=== PATIENT | female | born 1945 | race Caucasian/White ===

== ENCOUNTER 2017-11-02 10:51 | Outpatient (RCR) | payer MEDICARE, BC ==
[2016-09-14 10:00] VITALS: Wt 78.2 kg
[2017-10-30 11:15] VITALS: BP 138/92
[2017-10-30 11:28] LABS: PLATELET COUNT, AUTOMATED 287 K/uL (150-450)
[~2017-11-02 10:51] MED LIST: ACE3 FT; ACE3 PO; ACET-3017 PO; ALPR-445 PO; APIX5TAB PO; ASCO-182 PO; ASP81 PO; ASPI-1471 PO; ASPI-757 PO; ATOR20TA65 PO; ATOR40TA24 PO; CELE-1 PO; DIA5 PO; DOCU-416 PO; FAMO-67 PO; FERR324T23 PO; FLUO-177 PO; GLUC-307 PO; HYDR-2966 PO; HYDR-4308 PO; IBUP-1784 PO; IBUP200C71 PO; INDO50CA92 PO; LANS30CA63 PO; LANS30CA70 PO; LETR2.5T4 PO; LISI-362 PO; LISI20TA29 PO; METO-253 PO; METO-259 PO; MOM PO; MULT-1372 PO; ONDA8TAB98 PO; OXYC-823 PO; OXYC1TAB54 PO; PNEU0.5D3 IM; POLY17PO21 PO; PRAV20TA65 PO; PRAV40TA78 PO; PROB500T31 PO; PROM-110 PO; RIVA20TA PO; ROLAIDS PO; SOLI10TA8 PO; TOLT4CAP13 PO; TRAM-420 PO; VALA100062 PO; ZOST19404 SQ; [UNRECOGNIZED DRUG - CODE] PO; [UNRECOGNIZED DRUG - OTHER] PO
[2017-11-02 11:02] VITALS: BP 145/94
--- NOTE | 2017-11-03 17:44 | ONCOLOGY FOLLOW UP NOTE ---
EVENT DATE: November 02, 2017 DIAGNOSES 1. Stage IA ([id number]) right breast invasive ductal carcinoma. 2. Hypertension. 3. Hypercholesterolemia. 4. Arthritis. 5. Herpes zoster. 6. Bilateral pulmonary embolus diagnosed October 2016. CHIEF COMPLAINT The patient is here today for followup of her right breast cancer. ONCOLOGY HISTORY The patient is here today for followup of her right breast cancer on adjuvant hormonal therapy with letrozole. PRESENTATION Abnormal screening mammogram done June 04, 2015 and showed asymmetry deep in the medial aspect of the right breast. DIAGNOSTIC EVALUATION 1. Right digital diagnostic mammogram done on June 17, 2015, which showed focal area of increased density in the medial upper portion of the right breast in zone 3. 2. MRI of the breast did reveal a 6 mm abnormal area of enhancement with washout kinetics seen in the medial upper portion of the right breast zone 3; MRI of the breast done on June 25, 2015. PROCEDURE Wire localization and lumpectomy with right sentinel lymph node biopsy done on July 07, 2015. PATHOLOGY Positive for 0.7 cm infiltrating ductal carcinoma, grade II, ER positive, OR positive, HER2/marlena negative (1+ by immunohistochemistry). Ki-67 was low at 4.3% . Three sentinel lymph nodes removed on July 21, 2015 and came back negative for metastasis. Oncotype DX testing showed recurrence score of 11, which is low risk, so the patient is not a candidate for adjuvant chemotherapy. STAGE Stage IA ([id number]) right invasive ductal carcinoma. TREATMENT 1. The patient has started adjuvant hormonal therapy with Letrozole 2.5 mg daily on September 04, 2015. 2. The patient started adjuvant radiation therapy to her right breast on September 15, 2015. 3. The patient completed her adjuvant radiation therapy on October 30, 2015. HISTORY OF PRESENT ILLNESS Patient is here today for followup of her right breast cancer. She is doing fine currently except for some hot flashes. She has also some pain in her right knee after her surgery in her right knee. She is complaining of some numbness in her fingers sometimes and occasional headache. PAST MEDICAL HISTORY 1. Arthritis. 2. Gout. 3. Hypertension. 4. Hypercholesterolemia. PAST SURGICAL HISTORY 1. In 1998, she had fragmented disk, lumbar 7. She had laminectomy. 2. In 1999, she had fusion of lumbar 7. 3. In 2001, she had fusion of lumbar 7 again. 4. Left axillary biopsy for fatty tissue in the 1970s. 5. Tonsillectomy. 6. Right knee replacement done on September 13, 2015. SOCIAL HISTORY The patient is with two daughters. 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 Denies any abuse of tobacco or illicit drugs. FAMILY HISTORY Mother had breast cancer in her late sixties. CURRENT MEDICATIONS 1. Colace 100 mg twice daily. 2. MiraLax 17 gm once daily. 3. Milk of Magnesia 30 mL every 8 hours p.r.n. for constipation. 4. Tramadol 5 to 100 mg q.4-6h. p.r.n. for pain. 5. Ferrous fumarate 325 mg daily. 6. Atorvastatin 20 mg daily. 7. Vitamin C 500 mg daily. 8. Letrozole 2.5 mg daily. 9. Fluoxetine 20 mg daily. 10. Lisinopril 20 mg daily. 11. Alprazolam 25 mg, 1/2 to 1 tablet at bedtime p.r.n. 12. Vesicare 10 mg daily. 13. Probenecid 500 mg twice daily. 14. Metoprolol 50 mg daily. 15. Pepcid 20 mg daily. ALLERGIES DARVON, which causes nausea. HYDROCODONE, which causes nausea. REVIEW OF SYSTEMS CONSTITUTIONAL: The patient has some hot flashes. HEENT: Ears: No tinnitus or hearing problem. Nose: No nasal discharge or epistaxis. Throat: No sore throat or mouth ulcers. Eyes: No diplopia or visual changes. RESPIRATORY: No shortness of breath. No cough, expectoration or hemoptysis. CARDIOVASCULAR: No chest pain, orthopnea, or paroxysmal nocturnal dyspnea (PND) . No edema. No palpitations. GASTROINTESTINAL: Patient has occasional nausea and abdominal pain. GENITOURINARY: No hematuria or dysuria. MUSCULOSKELETAL: She has pain in the right knee. NEUROLOGICAL: She has numbness in her hands sometimes. She has occasional headache. HEMATOLOGIC/LYMPHATIC: She is weak, tired and fatigued. SKIN: No skin rash or lumps. PSYCHIATRIC: No anxiety or depression. PHYSICAL EXAMINATION GENERAL: Looks stable. Well-developed, well-nourished, and in no acute distress. VITAL SIGNS: Blood pressure 145/94, pulse 69 per minute, respirations 16 per minute, temperature 98.9, pulse ox 92% on room air. HEENT: Head: Atraumatic. No sinus tenderness to palpation. Eyes: No icterus or conjunctivitis. Mouth and throat: No oral thrush or mucositis. NECK: Supple. No cervical or supraclavicular lymphadenopathy. LUNGS: Clear to auscultation and percussion bilaterally. HEART: Regular rate and rhythm. No gallops, murmurs, clicks or rubs. ABDOMEN: Soft and lax. No tenderness. No hepatosplenomegaly. No masses. EXTREMITIES: No cyanosis, clubbing or edema. LYMPHATICS: No peripheral lymphadenopathy. NEUROLOGICAL: Conscious, alert and oriented times three. No focal motor or sensory deficits. PSYCHIATRIC: Mood and affect appear normal. SKIN: There is evidence of erythema of the entire right chest wall, including the right breast at the port of her radiation therapy. DIAGNOSTIC DATA CBC showed white count 7.9, hemoglobin 15.5, hematocrit 45.9, platelets 257, 000. Chem panel was totally normal except chloride 97. ASSESSMENT 1. Stage IA (T1b N0 M0) right invasive breast ductal carcinoma grade 2/3, ER/ OR positive, HER2/marel[place] negative. Status post localization lumpectomy done July 04, 2015 followed by right sentinel lymph node biopsy done July 21, 2015. [place] lymph nodes were negative for metastasis, tumor size was 0.7 cm. Oncotype DX testing showed low recurrence score of 11, so there was no indication for adjuvant chemotherapy. The patient started adjuvant hormonal therapy with Letrozole 2.5 mg daily on September 04, 2015. She received adjuvant radiation therapy between September 15, 2015 through October 30, 2015. She is tolerating treatment very well. I am planning to continue her Letrozole for a total of five years, and the patient is currently in complete remission. I am planning to see her again in three months with CBC, chem panel, CA 27-29. 2. History of bilateral pulmonary embolism after orthopedic surgical procedure. Patient received six months of anticoagulation with Eliquis between October and April 2017. 3. History of herpes zoster of the left lateral lower rib cage, status post treatment. 4. Arthritis, status post right knee replacement, August. 5. Hypertension, on treatment. PLAN 1. Continue Letrozole 2.5 mg daily. 2. Patient to return in three months with CBC, chem panel, CA 27-29. 3. Patient is to contact us for any new concerns or complaints. [facility]
== END 2018-01-25 ==
LOC: ONC 10:51
PROVIDERS: ATTEND Internal Medicine Hematology
DX: C50.911 Malignant neoplasm of unspecified site of right female breast (principal)
CPT/HCPCS: 36415; 85025; G0463; 82040; 82247; 82310; 82374; 82435; 82565; 82947; 84075; 84132; 84155; 84295; 84450; 84460; 84520; 99212

== ENCOUNTER 2018-02-01 10:57 | Outpatient (RCR) | payer MEDICARE, BC ==
[2016-09-14 10:00] VITALS: Wt 80.1 kg
[2018-01-29 11:09] LABS: PLATELET COUNT, AUTOMATED 304 K/uL (150-450)
[2018-02-01 11:05] VITALS: BP 120/60
--- NOTE | 2018-02-01 20:42 | ONCOLOGY FOLLOW UP NOTE ---
EVENT DATE: February 01, 2018 DIAGNOSES 1. Stage IA ([id number]) right breast invasive ductal carcinoma. 2. Hypertension. 3. Hypercholesterolemia. 4. Arthritis. 5. Herpes zoster. 6. Bilateral pulmonary embolus diagnosed October 2016. CHIEF COMPLAINT The patient is here today for followup of her right breast cancer. ONCOLOGY HISTORY The patient is here today for followup of her right breast cancer on adjuvant hormonal therapy with letrozole. PRESENTATION Abnormal screening mammogram done June 04, 2015 and showed asymmetry deep in the medial aspect of the right breast. DIAGNOSTIC EVALUATION 1. Right digital diagnostic mammogram done on June 17, 2015, which showed focal area of increased density in the medial upper portion of the right breast in zone 3. 2. MRI of the breast did reveal a 6 mm abnormal area of enhancement with washout kinetics seen in the medial upper portion of the right breast zone 3; MRI of the breast done on June 25, 2015. PROCEDURE Wire localization and lumpectomy with right sentinel lymph node biopsy done on July 07, 2015. PATHOLOGY Positive for 0.7 cm infiltrating ductal carcinoma, grade II, ER positive, [place] positive, HER2/marlena negative (1+ by immunohistochemistry). Ki-67 was low at 4.3% . Three sentinel lymph nodes removed on July 21, 2015 and came back negative for metastasis. Oncotype DX testing showed recurrence score of 11, which is low risk, so the patient is not a candidate for adjuvant chemotherapy. STAGE Stage IA ([id number]) right invasive ductal carcinoma. TREATMENT 1. The patient has started adjuvant hormonal therapy with Letrozole 2.5 mg daily on September 04, 2015. 2. The patient started adjuvant radiation therapy to her right breast on September 15, 2015. 3. The patient completed her adjuvant radiation therapy on October 30, 2015. HISTORY OF PRESENT ILLNESS Patient is here today for followup of her right breast cancer. She is doing very well currently without any symptoms, except for hot flashes and some chest pain for which the patient is going to see her doctor. She has also some fatigue, but generally speaking she is really doing very well. PAST MEDICAL HISTORY 1. Arthritis. 2. Gout. 3. Hypertension. 4. Hypercholesterolemia. PAST SURGICAL HISTORY 1. In 1998, she had fragmented disk, lumbar 7. She had laminectomy. 2. In 1999, she had fusion of lumbar 7. 3. In 2001, she had fusion of lumbar 7 again. 4. Left axillary biopsy for fatty tissue in the 1970s. 5. Tonsillectomy. 6. Right knee replacement done on September 13, 2015. SOCIAL HISTORY The patient is with two daughters. 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 Denies any abuse of tobacco or illicit drugs. FAMILY HISTORY Mother had breast cancer in her late sixties. CURRENT MEDICATIONS 1. Colace 100 mg twice daily. 2. MiraLax 17 gm once daily. 3. Milk of Magnesia 30 mL every 8 hours p.r.n. for constipation. 4. Tramadol 5 to 100 mg q.4-6h. p.r.n. for pain. 5. Ferrous fumarate 325 mg daily. 6. Atorvastatin 20 mg daily. 7. Vitamin C 500 mg daily. 8. Letrozole 2.5 mg daily. 9. Fluoxetine 20 mg daily. 10. Lisinopril 20 mg daily. 11. Alprazolam 25 mg, 1/2 to 1 tablet at bedtime p.r.n. 12. Vesicare 10 mg daily. 13. Probenecid 500 mg twice daily. 14. Metoprolol 50 mg daily. 15. Pepcid 20 mg daily. ALLERGIES DARVON, which causes nausea. HYDROCODONE, which causes nausea. REVIEW OF SYSTEMS CONSTITUTIONAL: The patient has hot flashes. HEENT: Ears: No tinnitus or hearing problem. Nose: No nasal discharge or epistaxis. Throat: No sore throat or mouth ulcers. Eyes: No diplopia or visual changes. RESPIRATORY: No shortness of breath. No cough, expectoration or hemoptysis. CARDIOVASCULAR: She has some chest pain for which the patient is going to see her doctor. No orthopnea, or paroxysmal nocturnal dyspnea (PND). No edema. No palpitations. GASTROINTESTINAL: Patient has occasional nausea and abdominal pain. GENITOURINARY: No hematuria or dysuria. MUSCULOSKELETAL: She has pain in the right knee. NEUROLOGICAL: She has numbness in her hands sometimes. She has occasional headache. HEMATOLOGIC/LYMPHATIC: She is weak, tired and fatigued. SKIN: No skin rash or lumps. PSYCHIATRIC: No anxiety or depression. PHYSICAL EXAMINATION GENERAL: Looks stable. Well-developed, well-nourished, and in no acute distress. VITAL SIGNS: Pulse 65 per minute, respirations 16 per minute, temperature 97.4 , pulse ox 91% on room air. HEENT: Head: Atraumatic. No sinus tenderness to palpation. Eyes: No icterus or conjunctivitis. Mouth and throat: No oral thrush or mucositis. NECK: Supple. No cervical or supraclavicular lymphadenopathy. LUNGS: Clear to auscultation and percussion bilaterally. HEART: Regular rate and rhythm. No gallops, murmurs, clicks or rubs. ABDOMEN: Soft and lax. No tenderness. No hepatosplenomegaly. No masses. EXTREMITIES: No cyanosis, clubbing or edema. LYMPHATICS: No peripheral lymphadenopathy. NEUROLOGICAL: Conscious, alert and oriented times three. No focal motor or sensory deficits. PSYCHIATRIC: Mood and affect appear normal. SKIN: There is evidence of erythema of the entire right chest wall, including the right breast at the port of her radiation therapy. DIAGNOSTIC DATA CBC showed white count 6.9, hemoglobin 15.2, hematocrit 44.6, platelets 304, 000. Chem panel was totally normal except BUN 23, blood sugar 143. CA 27-29 is normal at 11.5. ASSESSMENT 1. Stage IA (T1b N0 M0) right invasive breast ductal carcinoma grade 2/3, ER/ SD positive, HER2/marlena negative. Status post localization lumpectomy done July 04, 2015 followed by right sentinel lymph node biopsy done July 21, 2015. [place] lymph nodes were negative for metastasis, tumor size was 0.7 cm. Oncotype DX testing showed low recurrence score of 11, so there was no indication of adjuvant chemotherapy. The patient started adjuvant hormonal therapy with Letrozole 2.5 mg daily on September 04, 2015. She received adjuvant radiation therapy between September 15, 2015 through October 30, 2015. She is tolerating treatment very well. I am planning to continue Letrozole for a total of five years. Patient is tolerating treatment very well, except for some hot flashes. I am planning to see her again in three months with CBC, chem panel, CA 27-29. 2. History of bilateral pulmonary embolism after orthopedic surgical procedure. Patient received six months of anticoagulation with Eliquis between October and April 2017. 3. History of herpes zoster at left lateral lower rib cage, status post treatment. 4. Arthritis, status post right knee replacement, August. 5. Hypertension, on treatment. PLAN 1. Continue Letrozole 2.5 mg daily. 2. Patient to return in three months with CBC, chem panel, CA 27-29. 3. Patient is to contact us for any new concerns or complaints. MTDD
== END 2018-02-02 09:26 | disposition home or self-care (01) ==
LOC: ONC 10:57
PROVIDERS: ATTEND Internal Medicine Hematology
DX: C50.911 Malignant neoplasm of unspecified site of right female breast (principal); Z17.0 Estrogen receptor positive status [ER+]; Z92.3 Personal history of irradiation; Z79.811 Long term (current) use of aromatase inhibitors; I10 Essential (primary) hypertension; E78.00 Pure hypercholesterolemia, unspecified; R53.83 Other fatigue; Z79.899 Other long term (current) drug therapy; R53.1 Weakness
CPT/HCPCS: 36415; 85025; 86300; G0463; 82040; 82247; 82310; 82374; 82435; 82565; 82947; 84075; 84132; 84155; 84295; 84450; 84460; 84520; 99212

== ENCOUNTER → 2018-02-08 | Outpatient (CLI) | payer MEDICARE, BC ==
[2016-09-14 10:00] VITALS: BMI 33.1
--- NOTE | 2018-02-09 11:35 | RADIOLOGY IMAGING REPORT ---
[place] [facility] [place] NAME: Autumn Herron : 1945 MR: [id number] V: [id number] EXAM DATE: ORDERING PHYSICIAN: ERIC JARVIS TECHNOLOGIST: Location: [facility] Patient: Autumn Herron : 1945 Visit/Account:[id number] Date of Sevice: 02/08/2018 EXAMINATION: Single Isotope SPECT Imaging with Exercise and Gated SPECT Imaging DATE OF EXAMINATION: 02/08/18 DATE OF INTERPRETATION: 02/08/18 REQUESTING PHYSICIAN: ERIC JARVIS MD INDICATION: CP. PROCEDURE: After informed consent the patient received an intravenous injection of 11 mCi of Tc-99m sestamibi followed at the appropriate time interval by rest imaging. The patient then exercised acc ording to the standard Rocael protocol for 3:53 minutes achieving 4.9 METS. Resting heart rate was 69 bpm with a peak heart rate of 129 bpm which is 85 % of maximal predicted heart rate for age. Blood pressure at rest was 146 / 105; blood pressure during exercise was 152 / 114. There was no chest pa in during exercise. Exercise was discontinued because of fatigue. Baseline EKG demonstrates NSR. T here were 1MM EKG changes of ischemia at peak exercise. Approximately one minute and 30 seconds prio r to the termination of exercise, the patient received an intravenous injection of 27.9 mCi of Tc-99m sestamibi followed by stress imaging. RAW DATA: Examination of the summed raw data revealed a good quality study. MYOCARDIAL PERFUSION: The tomographic images demonstrate no ischemia or infarct, no TID noted. GATED IMAGES: The gated images demonstrate an estimated EF of 65% without SWMA's. IMPRESSION: 1. Low level exercise achieved without CP but with [address] depressions 2. Normal myocardial perfusion scan without ischemia. 3. Normal LV systolic function; LVEF 65%. 4. Based on the results of this exam, the patient appears to be at moderate risk for future cardiovas cular events. Possible balanced ischemia can cause "normal perfusion" in the setting of ischemia. Report Dictated By: Mike Mitchell at 02/09/2018 11:25 AM Report E-Signed By: Mike Mitchell at 02/09/2018 11:32 AM WSN:[id number]
== END ==
LOC: NUC 00:53
PROVIDERS: ATTEND Family Medicine
DX: R07.9 Chest pain, unspecified (principal)
CPT/HCPCS: 78452; 93017; A9500

== ENCOUNTER 2018-05-03 10:28 | Outpatient (RCR) | payer MEDICARE, BC ==
[2016-09-14 10:00] VITALS: Wt 78.3 kg
[2018-04-26 10:17] VITALS: BP 131/91
[2018-04-26 10:26] LABS: PLATELET COUNT, AUTOMATED 333 K/uL (150-450)
[~2018-05-03 10:28] MED LIST changes: +IBUP-136 PO; -IBUP200C71 PO; +INDO-23 PO; -INDO50CA92 PO
[2018-05-03 10:32] VITALS: BP 132/87
[2018-05-03] MEDS ORDERED: LOSA-54 PO (10:36)
[2018-05-03] MEDS ORDERED: CHOL10005 PO (10:36)
--- NOTE | 2018-05-03 17:07 | ONCOLOGY FOLLOW UP NOTE ---
EVENT DATE: May 03, 2018 DIAGNOSES 1. Stage IA ([id number]) right breast invasive ductal carcinoma. 2. Hypertension. 3. Hypercholesterolemia. 4. Arthritis. 5. Herpes zoster. 6. Bilateral pulmonary embolus diagnosed October 2016. CHIEF COMPLAINT The patient is here today for followup of her right breast cancer. ONCOLOGY HISTORY The patient is here today for followup of her right breast cancer on adjuvant hormonal therapy with letrozole. PRESENTATION Abnormal screening mammogram done June 04, 2015 and showed asymmetry deep in the medial aspect of the right breast. DIAGNOSTIC EVALUATION 1. Right digital diagnostic mammogram done on June 17, 2015, which showed focal area of increased density in the medial upper portion of the right breast in zone 3. 2. MRI of the breast did reveal a 6 mm abnormal area of enhancement with washout kinetics seen in the medial upper portion of the right breast zone 3; MRI of the breast done on June 25, 2015. PROCEDURE Wire localization and lumpectomy with right sentinel lymph node biopsy done on July 07, 2015. PATHOLOGY Positive for 0.7 cm infiltrating ductal carcinoma, grade II, ER positive, [place] positive, HER2/marlena negative (1+ by immunohistochemistry). Ki-67 was low at 4.3%. Three sentinel lymph nodes removed on July 21, 2015 and came back negative for metastasis. Oncotype DX testing showed recurrence score of 11, which is low risk, so the patient is not a candidate for adjuvant chemotherapy. STAGE Stage IA ([id number]) right invasive ductal carcinoma. TREATMENT 1. The patient has started adjuvant hormonal therapy with Letrozole 2.5 mg daily on September 04, 2015. 2. The patient started adjuvant radiation therapy to her right breast on September 15, 2015. 3. The patient completed her adjuvant radiation therapy on October 30, 2015. HISTORY OF PRESENT ILLNESS Patient is here today for followup of her right breast cancer. She is doing fine currently. She is complaining still of some hot flashes. She has pain n her knees from osteoarthritis. She has occasional headache, but other than that she is really doing very well. PAST MEDICAL HISTORY 1. Arthritis. 2. Gout. 3. Hypertension. 4. Hypercholesterolemia. PAST SURGICAL HISTORY 1. In 1998, she had fragmented disk, lumbar 7. She had laminectomy. 2. In 1999, she had fusion of lumbar 7. 3. In 2001, she had fusion of lumbar 7 again. 4. Left axillary biopsy for fatty tissue in the . 5. Tonsillectomy. 6. Right knee replacement done on September 13, 2015. SOCIAL HISTORY The patient is with two daughters. 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 Denies any abuse of tobacco or illicit drugs. FAMILY HISTORY Mother had breast cancer in her late sixties. CURRENT MEDICATIONS 1. Colace 100 mg twice daily. 2. MiraLax 17 gm once daily. 3. Milk of Magnesia 30 mL every 8 hours p.r.n. for constipation. 4. Tramadol 5 to 100 mg q.4-6h. p.r.n. for pain. 5. Ferrous fumarate 325 mg daily. 6. Atorvastatin 20 mg daily. 7. Vitamin C 500 mg daily. 8. Letrozole 2.5 mg daily. 9. Fluoxetine 20 mg daily. 10. Lisinopril 20 mg daily. 11. Alprazolam 25 mg, 1/2 to 1 tablet at bedtime p.r.n. 12. Vesicare 10 mg daily. 13. Probenecid 500 mg twice daily. 14. Metoprolol 50 mg daily. 15. Pepcid 20 mg daily. ALLERGIES 1. DARVON, which causes nausea. 2. HYDROCODONE, which causes nausea. REVIEW OF SYSTEMS CONSTITUTIONAL: No appetite or weight change. No fever, chills. She has some hot flashes. No recent infection. HEENT: Ears: No tinnitus or hearing problem. Nose: No nasal discharge or epistaxis. Throat: No sore throat or mouth ulcers. Eyes: No diplopia or visual changes. RESPIRATORY: No shortness of breath. No cough, expectoration or hemoptysis. CARDIOVASCULAR: No chest pain, orthopnea, or paroxysmal nocturnal dyspnea (PND). No edema. No palpitations. GASTROINTESTINAL: No nausea or vomiting. No diarrhea or constipation. No change in bowel movements. No heartburn or swallowing difficulties. No abdominal pain. No jaundice. No hematemesis, melena or rectal bleeding. GENITOURINARY: No hematuria or dysuria. MUSCULOSKELETAL: She has pain in the knees from osteoarthritis. NEUROLOGICAL: No tingling or numbness in the hands or feet. She has occasional headache. No convulsions. HEMATOLOGIC/LYMPHATIC: No bleeding or easy bruising. No weakness or fatigue. No enlarged lymph nodes. SKIN: No skin rash or lumps. PSYCHIATRIC: No anxiety or depression. PHYSICAL EXAMINATION GENERAL: Looks stable. Well-developed, well-nourished, and in no acute distress. VITAL SIGNS: Blood pressure 132/87, Pulse 84 per minute, respirations 16 per minute, temperature 97.6, pulse ox 91% on room air. HEENT: Head: Atraumatic. No sinus tenderness to palpation. Eyes: No icterus or conjunctivitis. Mouth and throat: No oral thrush or mucositis. NECK: Supple. No cervical or supraclavicular lymphadenopathy. LUNGS: Clear to auscultation and percussion bilaterally. HEART: Regular rate and rhythm. No gallops, murmurs, clicks or rubs. ABDOMEN: Soft and lax. No tenderness. No hepatosplenomegaly. No masses. EXTREMITIES: No cyanosis, clubbing or edema. LYMPHATICS: No peripheral lymphadenopathy. NEUROLOGICAL: Conscious, alert and oriented times three. No focal motor or sensory deficits. PSYCHIATRIC: Mood and affect appear normal. SKIN: There is evidence of erythema of the entire right chest wall, including the right breast at the port of her radiation therapy. DIAGNOSTIC DATA CBC showed white count 8000, hemoglobin 15.2, hematocrit 45.2, platelets 333,000. Chem panel was totally normal except sodium 135, potassium 3.3, blood sugar 111. CA 27-29 is normal at 10.2. ASSESSMENT 1. Stage IA (T1b N0 M0) right invasive breast ductal carcinoma grade 2/3, ER/[place] positive, HER2/marlena negative. Patient had localization lumpectomy done July 04 followed by right sentinel lymph node biopsy done July 21, 2015. [place] lymph nodes were negative for metastasis, tumor size was 0.7 cm. Oncotype DX testing showed low recurrence score of 11, so there was no indication of adjuvant chemotherapy. The patient started adjuvant hormonal therapy with Letrozole 2.5 mg daily on September 04, 2015. She received adjuvant radiation therapy between September 15, 2015 through October 30, 2015. She is tolerating Letrozole very well so far. I am planning to continue Letrozole for a total of five years unless there will be change in the duration in the future. She is tolerating treatment very well except for mild hot flashes. I am planning to continue same treatment, and I will see her again in three months with CBC, chem panel, CA 27-29. 2. History of bilateral pulmonary embolism after orthopedic surgical procedure. Patient received six months of anticoagulation with Eliquis between October and April 2017. 3. History of herpes zoster at left lateral lower rib cage, status post treatment. 4. Arthritis, status post right knee replacement, August. 5. Hypertension, on treatment. PLAN 1. Continue Letrozole 2.5 mg daily. 2. Patient to return in three months with CBC, chem panel, CA 27-29. 3. Patient is to contact us for any new concerns or complaints. MTDD
== END 2018-05-09 09:30 | disposition home or self-care (01) ==
LOC: ONC 10:28
PROVIDERS: ATTEND Internal Medicine Hematology
DX: C50.911 Malignant neoplasm of unspecified site of right female breast (principal); Z17.0 Estrogen receptor positive status [ER+]; Z79.811 Long term (current) use of aromatase inhibitors; Z86.711 Personal history of pulmonary embolism; I10 Essential (primary) hypertension; Z79.899 Other long term (current) drug therapy; E78.00 Pure hypercholesterolemia, unspecified
CPT/HCPCS: 36415; 85025; 86300; G0463; 82040; 82247; 82310; 82374; 82435; 82565; 82947; 84075; 84132; 84155; 84295; 84450; 84460; 84520; 99212

== ENCOUNTER → 2018-07-19 | Outpatient (CLI) | payer MEDICARE, BC ==
[2016-09-14 10:00] VITALS: BMI 33.1
[~2018-07-19] MED LIST changes: +CHOL10005 PO; -HYDR-4308 PO; +HYDR-654 PO; +LOSA-54 PO; +POLY17PO11 PO; -POLY17PO21 PO
--- NOTE | 2018-07-20 13:13 | RADIOLOGY IMAGING REPORT ---
FACILITY: [facility] PATIENT NAME: TODD BYERS : [id number] MR: [id number] V: [id number] EXAM DATE: [id number] ORDERING PHYSICIAN: ERIC JARVIS TECHNOLOGIST: Renetta Melara PROCEDURE:BILATERAL DIAGNOSTIC DIGITAL MAMMOGRAM WITH CAD ASSISTED INTERPRETATION & 3D TOMOSYNTHESIS COMPARISON:Prior mammograms 06/09/17, 06/07/16, 06/17/15, 06/04/15. INDICATIONS:HX BREAST CA FINDINGS: A mild amount of fibroglandular tissue is seen throughout the breasts. The parenchymal pattern has remained stable allowing for difference in mammographic technique & patient positioning. There is no evidence of malignant appearing mass, malignant appearing calcifications or other secondary sign of malignancy in either breast. DIAGNOSTIC CATEGORY 1--NEGATIVE. RECOMMENDATIONS: ROUTINE MAMMOGRAM AND CLINICAL EVALUATION. IMPRESSION: BIRADS 1: Negative. No significant abnormality is seen. Dictated by: Nancie Randall M.D. on 07/19/2018 at 13:58 Transcribed by: FISH on 07/19/2018 at 14:08 Approved by: Nancie Randall M.D. on 07/20/2018 at 13:12 [facility]
== END ==
LOC: MAMO 00:33
PROVIDERS: ATTEND Family Medicine
DX: Z85.3 Personal history of malignant neoplasm of breast (principal)
CPT/HCPCS: 77062; 77066

== ENCOUNTER 2018-08-02 12:30 | Outpatient (RCR) | payer MEDICARE, BC ==
[2016-09-14 10:00] VITALS: Wt 80.6 kg
[2018-07-30 13:45] VITALS: BP 121/78
[2018-07-30 14:04] LABS: PLATELET COUNT, AUTOMATED 349 K/uL (150-450)
[2018-08-02 12:44] VITALS: BP 128/77
--- NOTE | 2018-08-02 17:05 | EL-TARABILY ONCOLOGY NOTE ---
EVENT DATE: August 02, 2018 DIAGNOSES 1. Stage IA (T1b N0 M0) right breast invasive ductal carcinoma. 2. Hypertension. 3. Hypercholesterolemia. 4. Arthritis. 5. Herpes zoster. 6. Bilateral pulmonary embolus diagnosed October 2016. CHIEF COMPLAINT The patient is here today for followup of her right breast cancer. ONCOLOGY HISTORY The patient is here today for followup of her right breast cancer on adjuvant hormonal therapy with letrozole. PRESENTATION Abnormal screening mammogram done June 04, 2015, and showed asymmetry deep in the medial aspect of the right breast. DIAGNOSTIC EVALUATION 1. Right digital diagnostic mammogram done on June 17, 2015, which showed focal area of increased density in the medial upper portion of the right breast in zone 3. 2. MRI of the breast did reveal a 6 mm abnormal area of enhancement with washout kinetics seen in the medial upper portion of the right breast zone 3. MRI of the breast done on June 25, 2015. PROCEDURE Wire localization and lumpectomy with right sentinel lymph node biopsy done on July 07, 2015. PATHOLOGY Positive for 0.7 cm infiltrating ductal carcinoma, grade 2, ER positive, [place] positive, HER2/marlena negative (1+ by immunohistochemistry). Ki-67 was low at 4.3%. Three sentinel lymph nodes removed on July 21, 2015, and came back negative for metastasis. Oncotype DX testing showed recurrence score of 11, which is low risk, so the patient is not a candidate for adjuvant chemotherapy. STAGE Stage IA (pT1b pN0 cM0) right invasive ductal carcinoma. TREATMENT 1. The patient started adjuvant hormonal therapy with letrozole 2.5 mg daily on September 04, 2015. 2. The patient started adjuvant radiation therapy to her right breast on September 15, 2015. 3. The patient completed her adjuvant radiation therapy on October 30, 2015. HISTORY OF PRESENT ILLNESS Patient is here today for followup of her right breast cancer on adjuvant hormonal therapy with letrozole. She is doing fine currently. She has some night sweats, occasional headaches, and she is weak, tired, and fatigued. Other than that, she is very stable and doing fine. PAST MEDICAL HISTORY 1. Arthritis. 2. Gout. 3. Hypertension. 4. Hypercholesterolemia. PAST SURGICAL HISTORY 1. In 1998, she had fragmented disk, lumbar 7. She had laminectomy. 2. In 1999, she had fusion of lumbar 7. 3. In 2001, she had fusion of lumbar 7 again. 4. Left axillary biopsy for fatty tissue in the 1970s. 5. Tonsillectomy. 6. Right knee replacement done on September 13, 2015. SOCIAL HISTORY The patient is with two daughters. 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 Denies any abuse of tobacco or illicit drugs. FAMILY HISTORY Mother had breast cancer in her late 60s. CURRENT MEDICATIONS 1. Colace 100 mg twice daily. 2. MiraLAX 17 g once daily. 3. Milk of Magnesia 30 mL every 8 hours p.r.n. for constipation. 4. Tramadol 5 to 100 mg q.4-6 hours p.r.n. for pain. 5. Ferrous fumarate 325 mg daily. 6. Atorvastatin 20 mg daily. 7. Vitamin C 500 mg daily. 8. Letrozole 2.5 mg daily. 9. Fluoxetine 20 mg daily. 10. Lisinopril 20 mg daily. 11. Alprazolam 25 mg, 1/2 to 1 tablet at bedtime p.r.n. 12. VESIcare 10 mg daily. 13. Probenecid 500 mg twice daily. 14. Metoprolol 50 mg daily. 15. Pepcid 20 mg daily. ALLERGIES 1. DARVON, which causes nausea. 2. HYDROCODONE, which causes nausea. REVIEW OF SYSTEMS CONSTITUTIONAL: No appetite or weight change. No fever or chills. The patient has night sweats. No recent infection. HEENT: Ears: No tinnitus or hearing problem. Nose: No nasal discharge or epistaxis. Throat: No sore throat or mouth ulcers. Eyes: No diplopia or visual changes. RESPIRATORY: No shortness of breath. No cough, expectoration or hemoptysis. CARDIOVASCULAR: No chest pain, orthopnea, or paroxysmal nocturnal dyspnea (PND). No edema. No palpitations. GASTROINTESTINAL: No nausea or vomiting. No diarrhea or constipation. No change in bowel movements. No heartburn or swallowing difficulties. No abdominal pain. No jaundice. No hematemesis, melena or rectal bleeding. GENITOURINARY: No hematuria or dysuria. MUSCULOSKELETAL: No pain in the muscles, joints or bones. NEUROLOGICAL: No tingling or numbness in the hands or feet. She has occasional headache. No convulsions. HEMATOLOGIC/LYMPHATIC: No bleeding or easy bruising. She is weak, tired, and fatigued. No enlarged lymph nodes. SKIN: No skin rash or lumps. PSYCHIATRIC: No anxiety or depression. PHYSICAL EXAMINATION GENERAL: Looks stable. Well developed, well nourished, and in no acute distress. VITAL SIGNS: Blood pressure 127/76, pulse 70 per minute, respirations 16 per minute, temperature 98.6, pulse ox 91% on room air. HEENT: Head: Atraumatic. No sinus tenderness to palpation. Eyes: No icterus or conjunctivitis. Mouth and throat: No oral thrush or mucositis. NECK: Supple. No cervical or supraclavicular lymphadenopathy. LUNGS: Clear to auscultation and percussion bilaterally. HEART: Regular rate and rhythm. No gallops, murmurs, clicks, or rubs. ABDOMEN: Soft and lax. No tenderness. No hepatosplenomegaly. No masses. EXTREMITIES: No cyanosis, clubbing, or edema. LYMPHATICS: No peripheral lymphadenopathy. NEUROLOGICAL: Conscious, alert, and oriented times three. No focal motor or sensory deficits. PSYCHIATRIC: Mood and affect appear normal. SKIN: No skin rash, bruise, or purpuric eruption. DIAGNOSTIC DATA CBC showed white count 7.7, hemoglobin 15.5, hematocrit 46%, platelets 349,000. Chem panel totally normal except potassium 3.3 and blood sugar 117. CA27.29 is 12.5. ASSESSMENT 1. Stage IA (T1b N0 M0) right invasive breast ductal carcinoma grade 2/3, ER/[place] positive, HER2/marlena negative. Patient had localization lumpectomy done July 04, 2015, followed by right sentinel lymph node biopsy done July 21, 2015. [place] lymph nodes were negative for metastasis. Tumor size was 0.7 cm. Oncotype DX testing showed low recurrence score of 11, so there was no indication of adjuvant chemotherapy. The patient started adjuvant hormonal therapy with letrozole 2.5 mg daily September 04, 2015. She received adjuvant radiation therapy between September 15, 2015, through October 30, 2015. She is tolerating treatment very well so far. As the patient is three years since her diagnosis, I am planning to start to see her every four months rather than every three months. She is tolerating treatment except for hot flashes and night sweating sometimes. I am planning to continue the letrozole for a total of five years. I will see her again in four months with CBC, chemistry panel, and CA27.29. Her current CA27.29 is normal at 12.5. 2. History of bilateral pulmonary embolism after orthopedic surgical procedure. Patient received six months of anticoagulation with Eliquis between October and April 2017. 3. History of herpes zoster at left lateral lower rib cage, status post treatment. 4. Arthritis, status post right knee replacement September 13, 2016. 5. Hypertension, on treatment. PLAN 1. Continue letrozole 2.5 mg daily. 2. Patient to return in four months with CBC, chem panel, and CA27.29. 3. Patient is to contact us for any new concern or complaints. MTDD
== END 2018-10-02 08:53 | disposition home or self-care (01) ==
LOC: ONC 12:30
PROVIDERS: ATTEND Internal Medicine Hematology
DX: C50.911 Malignant neoplasm of unspecified site of right female breast (principal); Z17.0 Estrogen receptor positive status [ER+]; Z79.811 Long term (current) use of aromatase inhibitors; Z86.711 Personal history of pulmonary embolism; I10 Essential (primary) hypertension; Z79.899 Other long term (current) drug therapy; E78.00 Pure hypercholesterolemia, unspecified; M06.9 Rheumatoid arthritis, unspecified; R53.1 Weakness; Z92.3 Personal history of irradiation; Z96.651 Presence of right artificial knee joint
CPT/HCPCS: 36415; 85025; 86300; G0463; 82040; 82247; 82310; 82374; 82435; 82565; 82947; 84075; 84132; 84155; 84295; 84450; 84460; 84520; 99212

== ENCOUNTER → 2018-09-20 | Outpatient (REF) | payer MEDICARE, BC ==
[2016-09-14 10:00] VITALS: BMI 33.1
== END ==
LOC: ZZSENDIN 12:06
PROVIDERS: ATTEND Family Medicine
DX: R07.2 Precordial pain (principal)
CPT/HCPCS: 36415; 84484; 85379

== ENCOUNTER → 2018-09-20 | Outpatient (CLI) | payer MEDICARE, BC ==
[2016-09-14 10:00] VITALS: BMI 33.1
--- NOTE | 2018-09-20 15:06 | RADIOLOGY IMAGING REPORT ---
FACILITY: [facility] PATIENT NAME: Autumn Herron : 1945 MR: [id number] V: [id number] EXAM DATE: ORDERING PHYSICIAN: ERIC JARVIS TECHNOLOGIST: Location: [facility] Patient: Autumn Herron : 1945 Visit/Account:[id number] Date of Sevice: 09/20/2018 EXAMINATION: Focused right upper quadrant ultrasound COMPARISON: None HISTORY: Precordial chest pain. Findings: Standard right upper quadrant abdominal ultrasound is performed. Pancreas: Visualized portions of the pancreas are unremarkable. Liver and portal vein: Negative. Gallbladder and biliary system: No gallbladder stone or sludge. No wall thickening, pericholecystic f luid, or sonographic Crawley's. The visualized common bile duct is not dilated. Visualized aorta and IVC: Negative. Kidneys: The right kidney measures 9.1 x 3.8 x 4.6 cm . No renal mass, stone, or hydronephrosis. Ascites: None. IMPRESSION: Negative right upper quadrant ultrasound. Report Dictated By: Sujit Rader MD at 09/20/2018 2:56 PM Report E-Signed By: Sujit Rader MD at 09/20/2018 3:00 PM WSN:[id number]
== END ==
LOC: US 13:55
PROVIDERS: ATTEND Family Medicine
DX: R07.2 Precordial pain (principal)
CPT/HCPCS: 76705

== ENCOUNTER → 2018-09-27 | Outpatient (CLI) | payer MEDICARE, BC ==
[2016-09-14 10:00] VITALS: BMI 33.1
--- NOTE | 2018-09-27 14:28 | RADIOLOGY IMAGING REPORT ---
FACILITY: [facility] [place] PATIENT NAME: Autumn Herron : 1945 MR: [id number] V: [id number] EXAM DATE: ORDERING PHYSICIAN: CARLINE SILVA TECHNOLOGIST: Location: [facility] Patient: Autumn Herron : 1945 Visit/Account:[id number] Date of Sevice: 09/27/2018 2 VIEWS CHEST INDICATION: Abnormal stress. Precardial pain. Abnormal EKG. COMPARISON: 10/10/2016. FINDINGS: Cardiomediastinal silhouette and pulmonary vessels within normal limits. The lateral view the anterior mediastinal region there is a irregular curvilinear opacity which is no t seen previously. This is not seen on the frontal view. The lungs are otherwise clear. There is no pneumothorax or pleural effusion. No discrete nodule. Upper abdomen is unremarkable. No acute bony abnormality. IMPRESSION: 1. There is a ill-defined thickened linear opacity seen in the anterior mediastinal region the lower lateral chest. This is not seen previously and not seen on the frontal view. Etiologies would includ e overlapping tissues, atelectasis, infiltrate or possibly pericardial effusion. A follow-up bilatera l shallow oblique of the lateral chest can evaluate for overlapping shadows. Report Dictated By: Jacky Aiken at 09/27/2018 2:20 PM Report E-Signed By: Jacky Aiken at 09/27/2018 2:23 PM WSN:[id number]
== END ==
LOC: LAB 13:14
PROVIDERS: ATTEND Internal Medicine Cardiovascular Disease
DX: E78.2 Mixed hyperlipidemia (principal); R91.8 Other nonspecific abnormal finding of lung field; R07.9 Chest pain, unspecified; R94.39 Abnormal result of other cardiovascular function study; R94.31 Abnormal electrocardiogram [ECG] [EKG]
CPT/HCPCS: 36415; 71046; 82310; 82374; 82435; 82565; 82947; 84132; 84295; 84520; 85027; 85610

== ENCOUNTER → 2018-11-06 | Outpatient (CLI) | payer MEDICARE, BC ==
[2016-09-14 10:00] VITALS: BMI 33.1
--- NOTE | 2018-11-06 09:54 | RADIOLOGY IMAGING REPORT ---
[facility] PATIENT NAME: Autumn Herron : 1945 MR: [id number] V: [id number] EXAM DATE: ORDERING PHYSICIAN: CARLINE SILVA TECHNOLOGIST: Location: [facility] Patient: Autumn Herron : 1945 Visit/Account:[id number] Date of Sevice: 11/06/2018 US VENOUS DOPPLER - UPPER EXT LT HISTORY: Pain COMPARISON: None. FINDINGS: Martin sonographic images with spectral overlay and evaluation of respiratory phasicity and segmental compression reveals no evidence of DVT. In the region of pain, no mass or fluid collection. IMPRESSION: Negative left upper extremity ultrasound Report Dictated By: Kee Hernandez MD at 11/06/2018 9:49 AM Report E-Signed By: Kee Hernandez MD at 11/06/2018 9:50 AM WSN:[id number]
== END ==
LOC: US 00:27
PROVIDERS: ATTEND Internal Medicine Cardiovascular Disease
DX: Z98.61 Coronary angioplasty status (principal)

== ENCOUNTER 2018-12-06 10:57 | Outpatient (RCR) | payer MEDICARE, BC ==
[2016-09-14 10:00] VITALS: Wt 80.4 kg
[2018-12-04 10:05] VITALS: BP 145/83
[2018-12-04 10:20] LABS: PLATELET COUNT, AUTOMATED 316 K/uL (150-450)
[2018-12-06 11:00] VITALS: BP 147/93
--- NOTE | 2018-12-06 13:10 | EL-TARABILY ONCOLOGY NOTE ---
EVENT DATE: December 06, 2018 DIAGNOSES 1. Stage IA (T1b N0 M0) right breast invasive ductal carcinoma. 2. Hypertension. 3. Hypercholesterolemia. 4. Arthritis. 5. Herpes zoster. 6. Bilateral pulmonary embolus diagnosed October 2016. CHIEF COMPLAINT The patient is here today for followup of her right breast cancer. ONCOLOGY HISTORY The patient is here today for followup of her right breast cancer on adjuvant hormonal therapy with letrozole. PRESENTATION Abnormal screening mammogram done June 04, 2015, and showed asymmetry deep in the medial aspect of the right breast. DIAGNOSTIC EVALUATION 1. Right digital diagnostic mammogram done on June 17, 2015, which showed focal area of increased density in the medial upper portion of the right breast in zone 3. 2. MRI of the breast did reveal a 6 mm abnormal area of enhancement with washout kinetics seen in the medial upper portion of the right breast zone 3. MRI of the breast done on June 25, 2015. PROCEDURE Wire localization and lumpectomy with right sentinel lymph node biopsy done on July 07, 2015. PATHOLOGY Positive for 0.7 cm infiltrating ductal carcinoma, grade 2, ER positive, [place] positive, HER2/marlena negative (1+ by immunohistochemistry). Ki-67 was low at 4.3%. Three sentinel lymph nodes removed on July 21, 2015, and came back negative for metastasis. Oncotype DX testing showed recurrence score of 11, which is low risk, so the patient is not a candidate for adjuvant chemotherapy. STAGE Stage IA (pT1b pN0 cM0) right invasive ductal carcinoma. TREATMENT 1. The patient started adjuvant hormonal therapy with letrozole 2.5 mg daily on September 04, 2015. 2. The patient started adjuvant radiation therapy to her right breast on September 15, 2015. 3. The patient completed her adjuvant radiation therapy on October 30, 2015. HISTORY OF PRESENT ILLNESS Patient is here today for followup of her right breast cancer, on adjuvant hormonal therapy with letrozole. She is doing fine currently and she is totally asymptomatic currently. She developed an episode of chest pain for which patient was admitted to [facility]. She had a cardiac cath and, as per patient, her cardiac cath was actually normal. PAST MEDICAL HISTORY 1. Arthritis. 2. Gout. 3. Hypertension. 4. Hypercholesterolemia. PAST SURGICAL HISTORY 1. In 1998, she had fragmented disk, lumbar 7. She had laminectomy. 2. In 1999, she had fusion of lumbar 7. 3. In 2001, she had fusion of lumbar 7 again. 4. Left axillary biopsy for fatty tissue in the 1970s. 5. Tonsillectomy. 6. Right knee replacement done on September 13, 2015. SOCIAL HISTORY The patient is with two daughters. 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 Denies any abuse of tobacco or illicit drugs. FAMILY HISTORY Mother had breast cancer in her late 60s. CURRENT MEDICATIONS 1. Colace 100 mg twice daily. 2. MiraLAX 17 g once daily. 3. Milk of Magnesia 30 mL every 8 hours p.r.n. for constipation. 4. Tramadol 5 to 100 mg q.4-6 hours p.r.n. for pain. 5. Ferrous fumarate 325 mg daily. 6. Atorvastatin 20 mg daily. 7. Vitamin C 500 mg daily. 8. Letrozole 2.5 mg daily. 9. Fluoxetine 20 mg daily. 10. Lisinopril 20 mg daily. 11. Alprazolam 25 mg, 1/2 to 1 tablet at bedtime p.r.n. 12. VESIcare 10 mg daily. 13. Probenecid 500 mg twice daily. 14. Metoprolol 50 mg daily. 15. Pepcid 20 mg daily. ALLERGIES 1. DARVON, which causes nausea. 2. HYDROCODONE, which causes nausea. REVIEW OF SYSTEMS CONSTITUTIONAL: No appetite or weight change. No fever or chills. The patient has night sweats. No recent infection. HEENT: Ears: No tinnitus or hearing problem. Nose: No nasal discharge or epistaxis. Throat: No sore throat or mouth ulcers. Eyes: No diplopia or visual changes. RESPIRATORY: No shortness of breath. No cough, expectoration or hemoptysis. CARDIOVASCULAR: No chest pain, orthopnea, or paroxysmal nocturnal dyspnea (PND). No edema. No palpitations. GASTROINTESTINAL: No nausea or vomiting. No diarrhea or constipation. No change in bowel movements. No heartburn or swallowing difficulties. No abdominal pain. No jaundice. No hematemesis, melena or rectal bleeding. GENITOURINARY: No hematuria or dysuria. MUSCULOSKELETAL: No pain in the muscles, joints or bones. NEUROLOGICAL: No tingling or numbness in the hands or feet. She has occasional headache. No convulsions. HEMATOLOGIC/LYMPHATIC: No bleeding or easy bruising. She is weak, tired, and fatigued. No enlarged lymph nodes. SKIN: No skin rash or lumps. PSYCHIATRIC: No anxiety or depression. PHYSICAL EXAMINATION GENERAL: Looks stable. Well developed, well nourished, and in no acute distress. VITAL SIGNS: Blood pressure 147/93, pulse 73 per minute, respirations 16 per minute, temperature 98.8, pulse ox 90% on room air. HEENT: Head: Atraumatic. No sinus tenderness to palpation. Eyes: No icterus or conjunctivitis. Mouth and throat: No oral thrush or mucositis. NECK: Supple. No cervical or supraclavicular lymphadenopathy. LUNGS: Clear to auscultation and percussion bilaterally. HEART: Regular rate and rhythm. No gallops, murmurs, clicks, or rubs. ABDOMEN: Soft and lax. No tenderness. No hepatosplenomegaly. No masses. EXTREMITIES: No cyanosis, clubbing, or edema. LYMPHATICS: No peripheral lymphadenopathy. NEUROLOGICAL: Conscious, alert, and oriented times three. No focal motor or sensory deficits. PSYCHIATRIC: Mood and affect appear normal. SKIN: No skin rash, bruise, or purpuric eruption. DIAGNOSTIC DATA CBC showed white count 7.4, hemoglobin 15.2, hematocrit 45.3%, platelets 316,000. Chem panel totally. CA27.29 was normal at 12.5. ASSESSMENT 1. Stage IA (T1b N0 M0) right invasive breast ductal carcinoma grade 2/3, ER/[place] positive, HER2/marlena negative. Patient had localization lumpectomy done July 04, 2015, followed by right sentinel lymph node biopsy done July 21, 2015. [place] lymph nodes were negative for metastasis. Tumor size was 0.7 cm. Oncotype DX testing showed low recurrence score of 11, so there was no indication of adjuvant chemotherapy. The patient started adjuvant hormonal therapy with letrozole 2.5 mg daily September 04, 2015. She received adjuvant radiation therapy between September 15, 2015, through October 30, 2015. She is tolerating treatment very well so far. She is totally asymptomatic today. I am planning to continue followup. I will see her again in four months with CBC, chemistry panel and CA27.29. 2. History of bilateral pulmonary embolism after orthopedic surgical procedure. Patient received six months of anticoagulation with Eliquis between October and April 2017. 3. History of herpes zoster at left lateral lower rib cage, status post treatment. 4. Arthritis, status post right knee replacement September 13, 2016. 5. Hypertension, on treatment. PLAN 1. Continue letrozole 2.5 mg daily. 2. Patient to return in four months with CBC, chem panel and CA27.29. 3. Patient is to contact us for any new concern or complaints. MTDD
== END 2019-01-14 13:31 | disposition home or self-care (01) ==
LOC: ONC 10:57
PROVIDERS: ATTEND Internal Medicine Hematology
DX: C50.911 Malignant neoplasm of unspecified site of right female breast (principal); Z17.0 Estrogen receptor positive status [ER+]; I10 Essential (primary) hypertension; Z79.899 Other long term (current) drug therapy
CPT/HCPCS: 36415; 85025; 86300; G0463; 82040; 82247; 82310; 82374; 82435; 82565; 82947; 84075; 84132; 84155; 84295; 84450; 84460; 84520; 99212